=== PATIENT | male | born 1960 | race Caucasian/White ===

== ENCOUNTER → 2024-02-16 15:39 | Outpatient (REF) | payer OTHER, SELFPAY | LOC: HWRCS 15:39 | PROVIDERS: ATTENDING PHYSICIAN Internal Medicine Cardiovascular Disease; FAMILY PHYSICIAN Internal Medicine | DX: I10 Essential (primary) hypertension (principal); G45.9 Transient cerebral ischemic attack, unspecified; Z98.890 Other specified postprocedural states; I77.810 Thoracic aortic ectasia | CPT/HCPCS: 93306 ==

== ENCOUNTER 2024-04-08 18:06 | Emergency (ER) | payer OTHER, SELFPAY ==
[2024-04-08 18:14] VITALS: BP 168/88
[2024-04-08 19:46] VITALS: BMI 34.5
[2024-04-08 20:00] VITALS: BP 142/88
--- NOTE | 2024-04-08 20:07 | ED.GENMED ---
History of Present Illness
General
Chief Complaint: Musculo-Skeletal Complaint
Source: patient
Exam Limitations: none
Time Seen by Provider: 04/08/24 19:36
Nursing documentation reviewed up to this point in time: agreed with
History of Present Illness
History of Present Illness:
63-year-old male presents to the ER complaining of left knee pain. Reports she has had knee pain for the past several weeks. He has had a lot of activity and reports he did a lot of hiking in January and then was away in [place] recently and did
a lot of walking. He has fallen on this knee several times. It is gotten progressively worse. He has been taken ibuprofen.
Past History
Past History
ED Past Medical History: HTN, Hypercholesterolemia and Other (History of diverticulosis, with attacks of diverticulitis)
ED Past Surgical History: Appendectomy
Social History
Tobacco: Non-smoker
Alcohol: None
Drug: None
Personal:
Living: with family
Employment: Employed
Family History
Family History: Other (Noncontributory)
Review of Systems
Review of Systems
Allergies reviewed?: Yes
All Other Systems: ROS reviewed and negative except as documented in HPI and ROS
Constitutional: Reports no symptoms
Musculoskeletal: Reports other (Left knee pain)
Skin: Reports no symptoms
Psychiatric: Reports no symptoms
Phy Exam
General Physical Exam
General Presentation: no apparent distress
General age: appears stated age
General Skin: warm and dry
General Habitus: normal
General Mental: alert
General Hydration: appears well hydrated
Neurological Exam
Neurological Exam: alert and oriented x3
Musculoskeletal Exam
Musculoskeletal Exam: other (Left lower extremity strong pulses minimal swelling to left knee no erythema able to flex extend mild tenderness throughout mild discomfort with full flexion extension of left knee )
Skin Exam
Skin Exam: normal color and warm/dry
Psychiatric Exam
Psychiatric Exam: normal mood/affect
Course
Orders/Labs/Results
Orders:
Orders
04/08/24 18:17
Knee, Left 4 or More Views [CR Knee - Left 4 Or More View*] Urgent
Comment: denies trauma
Reason For Exam: left knee pain x2 days
Vital Signs
Initial and Last Documented VS:
Initial Vital Signs
Temp Pulse Resp BP Pulse Ox
98.0 F 73 16 168/88 98
04/08/24 18:14 04/08/24 18:14 04/08/24 18:14 04/08/24 18:14 04/08/24 18:14
Last Documented Vital Signs
Temp Pulse Resp BP Pulse Ox
98.0 F 73 16 142/88 96
04/08/24 18:14 04/08/24 18:14 04/08/24 18:14 04/08/24 20:00 04/08/24 20:00
MDM/Problems Addressed
MDM/Problems Addressed:
Symptoms are consistent with sprain strain overuse of knee. X-ray does show minimal arthritis. Patient has been doing a lot of activity and hiking has fallen several times on the knee no obvious fracture. He has been evaluated by orthopedics
Cheri in the past will DC with knee immobilizer rest ice ibuprofen patient Ortho follow-up
*Radiology
Radiology exam reviewed: radiology read reviewed
*Pulse Oximetry
Patient hypoxic: no
*Critical Care Note
Total Time (30-74mins, 75-104mins- exclusive of procedures): Not Applicable
ED Attending Note
-
Portions of this chart may have been created with voice recognition software.� Occasional wrong word or��sound alike� substitutions may have occurred due to the inherent limitations of voice recognition software.
Discharge Plan
Departure
Patient Disposition: Home (Routine Discharge)
Date of Disposition: 04/08/24
Time of Disposition: 20:19
Patient with high blood pressure during this ER visit?: Yes
Covid-19: Not Applicable
Discharge Problem:
knee pain
Instructions: Knee Pain (DC)
Prescriptions:
No Action
lisinopril 10 MG tablet
20 mg PO DAILY
hydrocodone-acetaminophen 1 TABLET tablet
1 tab PO Q4HPRN PRN (Reason: moderate to severe pain) Qty: 25 0RF
Referrals:
Taras Alexander DO [Family Provider] -
Luis Manuel Bynum MD [Active] -
Activity Restrictions/Additional Instructions:
As discussed rest as much as possible and keep elevated. You may continue to ice intermittently 20 minutes at a time.
Wear immobilizer for support with ambulation.
Follow-up with orthopedics please call tomorrow to make an appointment and return if any worsening of symptoms
Interventions
Interventions:
*Risk Screen - Suicide Last Done: 04/08/24 18:14
*General Assessment Last Done: 04/08/24 19:46
*Neglect/Abuse Screening Last Done: 04/08/24 18:14
ED- Fall Risk Assessment Last Done: 04/08/24 19:46
*ED COVID-19 Vaccine History Last Done: 04/08/24 19:46
ED-Musculoskeletal Assessment Last Done: 04/08/24 19:46
Discharge Date and Time
Print Language: PORTUGUESE
== END 2024-04-08 20:56 | disposition home or self-care (01) ==
LOC: EMR 18:06
PROVIDERS: EMERGENCY PHYSICIAN Emergency Medicine; FAMILY PHYSICIAN Internal Medicine
DX: M25.562 Pain in left knee (principal); I10 Essential (primary) hypertension
CPT/HCPCS: 99283; 29505; 73564

== ENCOUNTER → 2025-02-14 11:26 | Outpatient (REF) | payer OTHER, SELFPAY | LOC: HWRCS 11:26 | PROVIDERS: ATTENDING PHYSICIAN Internal Medicine Cardiovascular Disease; FAMILY PHYSICIAN Internal Medicine | DX: I77.810 Thoracic aortic ectasia (principal); I10 Essential (primary) hypertension; Z98.890 Other specified postprocedural states | CPT/HCPCS: 93306 ==